=== PATIENT | female | born 2005 | race Caucasian/White ===

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

== ENCOUNTER → 2023-06-05 12:14 | Outpatient (BNVA) | payer OTHER, SELFPAY | PROVIDERS: PCP Family Medicine; Visit Provider Nurse Practitioner Women's Health | DX: N94.6 Dysmenorrhea, unspecified (principal) | CPT/HCPCS: 76830 ==

== ENCOUNTER → 2023-08-26 15:00 | Outpatient (BNVA) | payer OTHER, SELFPAY | PROVIDERS: PCP Family Medicine; Visit Provider Obstetrics & Gynecology | DX: Z34.90 Encounter for supervision of normal pregnancy, unspecified, unspecified trimester (principal); Z3A.00 Weeks of gestation of pregnancy not specified | CPT/HCPCS: 84702 ==

== ENCOUNTER → 2023-08-28 15:30 | Outpatient (BNVA) | payer OTHER, SELFPAY | PROVIDERS: PCP Family Medicine; Visit Provider Obstetrics & Gynecology | DX: Z34.90 Encounter for supervision of normal pregnancy, unspecified, unspecified trimester (principal); Z3A.00 Weeks of gestation of pregnancy not specified | CPT/HCPCS: 84702 ==

== ENCOUNTER → 2023-09-18 10:15 | Outpatient (BNVA) | payer MEDICAID, SELFPAY | PROVIDERS: PCP Family Medicine; Visit Provider Obstetrics & Gynecology | DX: Z34.91 Encounter for supervision of normal pregnancy, unspecified, first trimester (principal); Z3A.01 Less than 8 weeks gestation of pregnancy | CPT/HCPCS: 76817 ==

== ENCOUNTER → 2023-09-25 12:00 | Outpatient (BNVA) | payer OTHER, MEDICAID, SELFPAY | PROVIDERS: PCP Family Medicine; Visit Provider Obstetrics & Gynecology | DX: Z34.90 Encounter for supervision of normal pregnancy, unspecified, unspecified trimester (principal); Z3A.00 Weeks of gestation of pregnancy not specified | CPT/HCPCS: 84439; 84443; 84481; 85025; 86592; 86762; 86803; 86850; 86900; 87340; 87806 ==

== ENCOUNTER → 2023-12-17 14:17 | Outpatient (BNVA) | payer OTHER, BC, MEDICAID, SELFPAY | PROVIDERS: PCP Family Medicine; Visit Provider Obstetrics & Gynecology | DX: Z34.92 Encounter for supervision of normal pregnancy, unspecified, second trimester (principal) | CPT/HCPCS: 76805 ==

== ENCOUNTER → 2024-01-14 07:45 | Outpatient (BNVA) | payer OTHER, BC, MEDICAID, SELFPAY | PROVIDERS: PCP Family Medicine; Visit Provider Obstetrics & Gynecology | DX: Z34.80 Encounter for supervision of other normal pregnancy, unspecified trimester (principal) | CPT/HCPCS: 76816 ==

== ENCOUNTER → 2024-02-10 07:35 | Outpatient (BNVA) | payer OTHER, BC, MEDICAID, SELFPAY | PROVIDERS: PCP Family Medicine; Visit Provider Obstetrics & Gynecology | DX: Z34.01 Encounter for supervision of normal first pregnancy, first trimester (principal) | CPT/HCPCS: 82950; 84315 ==

== ENCOUNTER → 2024-02-21 08:10 | Outpatient (BNVA) | payer OTHER, BC, MEDICAID, SELFPAY | PROVIDERS: PCP Family Medicine; Visit Provider Obstetrics & Gynecology | DX: Z34.00 Encounter for supervision of normal first pregnancy, unspecified trimester (principal) | CPT/HCPCS: 82951; 82952 ==

== ENCOUNTER → 2024-03-24 07:49 | Outpatient (BNVA) | payer OTHER, BC, MEDICAID, SELFPAY | PROVIDERS: PCP Family Medicine; Visit Provider Nurse Practitioner Women's Health | DX: Z34.01 Encounter for supervision of normal first pregnancy, first trimester (principal) | CPT/HCPCS: 84315; 86850 ==

== ENCOUNTER 2024-03-25 15:30 | Outpatient (CLI) | payer OTHER, BC, MEDICAID, SELFPAY ==
[2024-03-25 15:48] VITALS: BP 137/79; PULSE 94
[2024-03-25 16:03] VITALS: BMI 41.1
[2024-03-25 16:04] VITALS: BP 127/75; PULSE 95
[2024-03-25 16:19] VITALS: BP 129/70; PULSE 98
== END 2024-03-25 16:27 | disposition home or self-care (01) ==
LOC: OPOB 15:38 → OBGYN 15:38
PROVIDERS: PCP Family Medicine; Visit Provider Obstetrics & Gynecology
DX: O26.899 Other specified pregnancy related conditions, unspecified trimester (principal); Z3A.00 Weeks of gestation of pregnancy not specified; R10.9 Unspecified abdominal pain
CPT/HCPCS: 59025; 99211

== ENCOUNTER → 2024-04-06 07:51 | Outpatient (BNVA) | payer OTHER, BC, MEDICAID, SELFPAY | PROVIDERS: PCP Family Medicine; Visit Provider Nurse Practitioner Women's Health | DX: Z34.01 Encounter for supervision of normal first pregnancy, first trimester (principal) | CPT/HCPCS: 84315; 87081 ==

== ENCOUNTER → 2024-04-08 08:59 | Outpatient (BNVA) | payer OTHER, BC, MEDICAID, SELFPAY | PROVIDERS: PCP Family Medicine; Visit Provider Nurse Practitioner Women's Health | DX: Z34.93 Encounter for supervision of normal pregnancy, unspecified, third trimester (principal) | CPT/HCPCS: 76816 ==

== ENCOUNTER 2024-04-28 09:50 | Outpatient (CLI) | payer OTHER, BC, MEDICAID, SELFPAY ==
[2024-04-28 10:02] VITALS: BP 122/83; PULSE 83
[2024-04-28 10:23] VITALS: BP 119/94; PULSE 98
[2024-04-28 10:42] VITALS: BP 131/84; PULSE 86
== END 2024-04-28 11:20 | disposition home or self-care (01) ==
LOC: OPOB 09:54 → OBGYN 11:13
PROVIDERS: PCP Family Medicine; Visit Provider Obstetrics & Gynecology
DX: O26.899 Other specified pregnancy related conditions, unspecified trimester (principal); Z3A.00 Weeks of gestation of pregnancy not specified; R10.9 Unspecified abdominal pain
CPT/HCPCS: 59025; 99211

== ENCOUNTER 2024-04-29 18:20 | Inpatient (IN) | payer OTHER, BC, MEDICAID, SELFPAY ==
[2024-04-29] VITALS (18 sets, daily range): BP systolic 114–143; BP diastolic 69–93; PULSE 112–130; TEMP 36.8; BMI 40.9
[2024-04-29] MEDS: dextrose 5%-lactated ringers 1,000 ML 125 ML IV (18:08)
[2024-04-29 18:12] LABS: Basophils % 0.2 %; Hematocrit 33.1 % (36-47); Lymphocytes # 0.7 10^3/uL (0.8-4.8); Lymphocytes % 5.9 %; Mean Corpuscular HGB Conc 33.2 g/dL (30-55); Mean Corpuscular Hemoglobin 25.4 pg (27-33); Mean Corpuscular Volume 76.4 fl (85-98); Mean Platelet Volume 12.6 fL (7.4-10.4); Monocytes # 0.5 10^3/uL (0.2-0.9); Neutrophils # 10.11 10^3/uL (1.8-7.7); Neutrophils % 89.6 %; Nucleated Red Blood Cells % 0 %; Platelet Count 175 10^3/cmm (157-399); Red Blood Count 4.33 10^6/uL (3.85-5.65); Red Cell Distribution Width 14.1 % (12.1-15.1); White Blood Count 11.27 10^3/uL (3.29-11.43)
--- NOTE | 2024-04-29 18:35 | PM.OBGYHP ---
Providers/Chief Complaint Admitting Physician: Leo Gibbs MD Primary DRYWALL FINISHING FOREMAN: Leo Gibbs MD Primary Care Provider: Cherrie Lambert MD Chief Complaint: IOL HPI DRYWALL FINISHING FOREMAN History of Present Illness Carmen Banks is a 19 year old female G1 EDC April 29, 2024 At 40 w 0 d No complications Admitted for elective induction of labor No c/o + active movements Present Details : 1 Para: 0 Labs Rubella: Immune RPR: Negative GBS: Negative Medications/Allergies Home Medications Medication Instructions Recorded Confirmed Last Taken Type docosahexaenoic acid 200 mg mg PO 09/12/23 04/27/24 Unknown History capsule ( DHA) Allergies Allergy/AdvReac Type Severity Reaction Status Date / Time cephalexin [From Keflex] Allergy Mild rash Verified 04/27/24 07:46 PFSH DRYWALL FINISHING FOREMAN PFSH: Medical History Anxiety Surgical History Hx of tonsillectomy Family History Father Diabetes Family/Other Diabetes Paternal uncles Stroke Paternal uncle Mother Thyroid disease Denies family history of Colon cancer Ovarian cancer Heart disease Hypercholesteremia Breast cancer Hypertension Uterine cancer Social History Smoking and tobacco/nicotine status: never used tobacco/nicotine Personal Safety: Do you feel safe at home: Yes History History History 1 Term 0 Miscarriages/Ectopic Living Children Care MEAGAN Calculator Estimated Delivery Date Method Current WG Current Estimate 04/29/24 LMP (Certain) 40w 2d Specific Issues/Plans SUPERVISION OF FIRST NORMAL NAUSEA AND VOMITING DURING -resolved RH NEGATIVE STATUS DURING - rhogam received on 03/24/24 EPISTAXIS, RECURRENT ANXIETY DIZZINESS Vitals/I&O/Wt Last Vital Signs Temp 96.1 F L 05/01/24 02:27 Pulse 78 05/01/24 04:44 Resp 15 04/30/24 16:00 BP 119/68 05/01/24 04:44 Pulse Ox 98 04/30/24 01:39 O2 Del Method Room Air 04/29/24 16:36 04/30/24 05/01/24 05/01/24 22:59 06:59 14:59 Intake Total 1371.6 / 2512.95 Output Total 1650 / 1650 Balance -278.4 / 862.95 Weight last 48 hrs Weight 246 lb Physical Exam Narrative: Weight 246 lbs; 5?5? VS normal General comfortable, awake, alert Lungs: clear Cor: RRR FH 38 cm, cephalic Cervix: 2 / 50% / -3 / posterior Ext: normal External monitor: heart tracing good variability, + accelerations Urinary Catheter Management: Wolfe: Cath Placed During This Visit: yes, but has since been removed by the nurse Reason for Continuing Indwelling Catheter: Not indwelling catheter Urinary Catheter Date of Insertion: 04/30/24 Urinary Catheter Time of Insertion: 02:30 Date Urinary Catheter Removed: 04/30/24 Time Urinary Catheter Discontinued: 13:25 Data 05/01/24 05:25 Results Labs OB ([facility]): Obstetrics US 04/08/24 Blood Type O Negative 04/29/24 Antibody Screen Positive 04/29/24 Hct 26.6 % (36-47) L 05/01/24 Hgb 8.60 g/dL (11.27-16.99) L 05/01/24 Rho(D) Type Rh negative 04/29/24 Plt Count 148 10^3/cmm (157-399) L 05/01/24 Hep Bs Antigen Non-reactive (Nonreactive) 09/25/23 Hepatitis C Antibody Non-reactive (Nonreactive) 09/25/23 Rubella IgG Antibody 76.0 IU/mL (0.0-10.0) H 09/25/23 RPR Nonreactive (Nonreactive) 09/25/23 HIV 1&2 Ab & HIV 1 Ag Non-reactive (Non-Reactiv) 09/25/23 TSH 1.29 uIU/mL (0.27-4.20) 09/25/23 Free T4 1.20 ng/dL (0.82-1.77) 09/25/23 C.trachomatis RNA (TMA) Pending 04/30/24 N.gonorrhoeae RNA (TMA) Pending 04/30/24 Chlamydia/GC Comment Pending 04/30/24 Glucose 1 Hr 50 gm 149 mg/dL (85-140) H 02/10/24 Gest Glucose Tolerance mg/dL 02/21/24 Ser , Semi-Qnt 1300.00 mIU/mL 08/28/23 HCG, Qual Positive (Negative) H 09/12/23 A&P Assessment and plan (1) Supervision of normal first : 40 w 0 d Admit for induction of labor GBS negative Plan start Pitocin per protocol Qualifiers: Trimester: first trimester Qualified Code(s): Z34.01 - Encounter for supervision of normal first , first trimester (2) Rh negative status during : Qualifiers: Trimester: second trimester Qualified Code(s): O26.892 - Other specified related conditions, second trimester; Z67.91 - Unspecified blood type, Rh negative Attestations Medical Necessity Statement*: patient at 40 w 0 d, admitted for induction of labor Coding Level of Care Code Acute Code for Chg Fwd Diagnoses Encounter for supervision of normal first in first trimester Z34.01 Trimester: first trimester Rh negative status during in second trimester O26.892; Z67.91 Trimester: second trimester Time Spent (min) 60
[2024-04-29] MEDS: ondansetron 2 mg/ML SDV 2 mL 4 MG IVP (19:08)
--- NOTE | 2024-04-29 21:20 | PM.OBGYPN ---
SENIOR RESEARCH ANALYST Subjective Subjective: Interval history: Fetus reassuring Cervix: 3 cm / 75% / -3 Labor: Station: +1 Amniotic Membrane Status: Ruptured Monitor Mode: Internal (IUPC) Contraction Pattern: Regular Vitals/I&O/Wt Last Vital Signs Temp 96.1 F L 05/01/24 02:27 Pulse 78 05/01/24 04:44 Resp 15 04/30/24 16:00 BP 119/68 05/01/24 04:44 Pulse Ox 98 04/30/24 01:39 O2 Del Method Room Air 04/29/24 16:36 04/30/24 05/01/24 05/01/24 22:59 06:59 14:59 Intake Total 1371.6 / 2512.95 Output Total 1650 / 1650 Balance -278.4 / 862.95 Weight last 48 hrs Weight 246 lb Physical Exam Urinary Catheter Management: Wolfe: Cath Placed During This Visit: yes, but has since been removed by the nurse Reason for Continuing Indwelling Catheter: Not indwelling catheter Urinary Catheter Date of Insertion: 04/30/24 Urinary Catheter Time of Insertion: 02:30 Date Urinary Catheter Removed: 04/30/24 Time Urinary Catheter Discontinued: 13:25 Data 05/01/24 05:25 A&P Assessment and plan (1) Encounter for induction of labor: Attestations Medical Necessity Statement*: patient at 40 w 0 d, admitted for induction of labor Coding Level of Care Code Acute Code for Chg Fwd Diagnoses Encounter for induction of labor Z34.90 Time Spent (min) 20
[2024-04-29] MEDS: oxytocin 30 UNIT/500 ML BAG IV (22:42)
[2024-04-30] VITALS (119 sets, daily range): BP systolic 91–173; BP diastolic 52–88; PULSE 72–146; RESP 15–16; TEMP 35.4–36.7; O2SAT 98–100
[2024-04-30] MEDS: lactated ringers 1,000 ML 999 ML IV ×2 (00:14→01:16)
--- NOTE | 2024-04-30 01:39 | P.ANESUD_ITS ---
Pre-Anesthetic Update Pre-Anesthetic Assessment: Date of Surgery/Procedure: 04/30/24 Preop Mayi gnosis: Labor pain Proposed Procedure: DENIA Any changes to Pre-Anesthetic Assessment?: No Labs Last 48hrs: Short CBC 04/29/24 Range/Units 17:15 WBC 11.27 (3.29-11.43) 10^ 3/uL Hgb 11.00 L (11.27-16.99) g/ dL Hct 33.1 L (36-47) % MCV 76.4 L (85-98) fl Plt Count 175 (157-399) 10^3/c mm Neut % (Auto) 89.6 % Neut # (Auto) 10.11 H (1.8-7.7) 10^3/u L Blood Bank 04/29/24 17:15 Blood Type O Negative Rho(D) Type Rh negative Antibody Screen Positive Vitals: Temperature 98.3 F 04/29/24 17:58 Temperature Source Axillary 04/29/24 17:58 Pulse Rate 109 H 04/30/24 01:36 Pulse Rhythm Regular 04/29/24 16:36 Pulse Strength 3+ Normal 04/29/24 16:36 Respiratory Effort Spontaneous, Non- Labored 04/29/24 16:36 Respiratory Depth Normal 04/29/24 16:36 Respiratory Patter n Normal 04/29/24 16:36 Blood Pressure 115/69 04/30/24 01:36 Pulse Oximetry 98 04/30/24 01:31 Oxygen Delivery Me thod Room Air 04/29/24 16:36 Exam: Pre-Anes Outpt Exam: alert, oriented x 3, clear to auscultation bilaterally and regular rate & rhythm Cardiac Studies: No Data to Display
--- NOTE | 2024-04-30 01:40 | ANES.PROC ---
Anesthesia Procedures Procedure/Date: 04/30/24 Epidural: Time Out Performed: Yes Consents Signed: Procedure Consent, NPO Consent and No Consent Needed Consent: requested by attending/covering physician, from patient, risks and benefits reviewed and patient agrees to proceed Lumbar Level: L2-L3 Epidural position: sitting Epidural procedure: sterile prep of area, 1% lidocaine to numb the area, 18 g needle, negative for paresthesia passed, test dose given, 1.5% xylocaine 1:200k epi (5cc), 0.2% Ropivacaine bolus ml (5cc and Fentanyl 100mcg), placed PCEA, no systemic response, sterile dressing applied, L.U.D. no apparent complications and 0.2% Ropiavacaine @ mls/hr (13cc/hour.Pt tolerated well)
[2024-04-30] MEDS: ROPivacaine syringe 100 MG/50 ML SYRINGE 13 MG EPIDURAL ×4 (01:45→14:07)
[2024-04-30] MEDS: dextrose 5%-lactated ringers 1,000 ML 125 ML IV ×2 (02:22→10:49)
--- NOTE | 2024-04-30 06:40 | P.PN_ITS ---
HR SHARED SERVICES CONSULTANT Subjective 2 Subjective: Interval history: Fetus reassuring Cervix: 4 cm / -2 AROM, clear fluid IUPC placed Labor: Station: +1 Amniotic Membrane Status: Ruptured Monitor Mode: Internal (IUPC) Contraction Pattern: Regular Vitals/I&O/Wt Last Vital Signs Temp 96.1 F L 05/01/24 02:27 Pulse 78 05/01/24 04:44 Resp 15 04/30/24 16:00 BP 119/68 05/01/24 04:44 Pulse Ox 98 04/30/24 01:39 O2 Del Method Room Air 04/29/24 16:36 04/30/24 05/01/24 05/01/24 22:59 06:59 14:59 Intake Total 1371.6 / 2512.95 Output Total 1650 / 1650 Balance -278.4 / 862.95 Weight last 48 hrs Weight 246 lb Physical Exam 2 Urinary Catheter Management: Wolfe: Cath Placed During This Visit: yes, but has since been removed by the nurse Reason for Continuing Indwelling Catheter: Not indwelling catheter Urinary Catheter Date of Insertion: 04/30/24 Urinary Catheter Time of Insertion: 02:30 Date Urinary Catheter Removed: 04/30/24 Time Urinary Catheter Discontinued: 13:25 Data 05/01/24 05:25 A&P Assessment and plan (1) Encounter for induction of labor: Attestations 2 Medical Necessity Statement*: patient at 40 w 1 d, admitted for induction of labor Coding Level of Care Code Acute Code for Chg Fwd Diagnoses Encounter for induction of labor Z34.90 Time Spent (min) 20
[2024-04-30] MEDS: calcium carbonate 500 mg Chew Tablet 1000 MG PO (07:41)
--- NOTE | 2024-04-30 16:50 | PM.OBGYPN ---
HAMMER OPERATOR Subjective Subjective: Interval history: , vigorous infant Cord gases and blood obtained Normal placenta and cord Second-degree perineal laceration repaired EBL: 300 cc No complications Labor: Station: +1 Amniotic Membrane Status: Ruptured Monitor Mode: Internal (IUPC) Contraction Pattern: Regular Vitals/I&O/Wt Last Vital Signs Temp 96.1 F L 05/01/24 02:27 Pulse 78 05/01/24 04:44 Resp 15 04/30/24 16:00 BP 119/68 05/01/24 04:44 Pulse Ox 98 04/30/24 01:39 O2 Del Method Room Air 04/29/24 16:36 04/30/24 05/01/24 05/01/24 22:59 06:59 14:59 Intake Total 1371.6 / 2512.95 Output Total 1650 / 1650 Balance -278.4 / 862.95 Weight last 48 hrs Weight 246 lb Physical Exam Urinary Catheter Management: Wolfe: Cath Placed During This Visit: yes, but has since been removed by the nurse Reason for Continuing Indwelling Catheter: Not indwelling catheter Urinary Catheter Date of Insertion: 04/30/24 Urinary Catheter Time of Insertion: 02:30 Date Urinary Catheter Removed: 04/30/24 Time Urinary Catheter Discontinued: 13:25 Data 05/01/24 05:25 A&P Assessment and plan (1) Vaginal delivery: Attestations Medical Necessity Statement*: patient at 40 w 1 d, admitted for induction of labor. s/p vaginal delivery Coding Level of Care Code Acute Code for Chg Fwd Diagnoses Vaginal delivery O80 Time Spent (min) 60
--- NOTE | 2024-04-30 16:55 | PM.DELIVERY ---
Delivery Note: Date of delivery: May 01, 2024 Pre-delivery diagnoses: 39 w 4 d elective induction of labor Post-delivery diagnoses: 39 w 4 d elective induction of labor vaginal delivery Procedure: induction of labor vaginal delivery Op report anesthesia: None Delivering Physician: Leo Gibbs MD Estimated blood loss (mL): 300 Findings: , vigorous infant Cord gases and blood obtained Normal placenta and cord Second-degree perineal laceration repaired EBL: 300 cc No complications Pre-Delivery Course: normal labor course Delivery: vaginal Post-Delivery Status: good History History History 1 Term 0 Miscarriages/Ectopic Living Children A&P Assessment and plan (1) Vaginal delivery: Coding Level of Care Code Acute Code for Chg Fwd Diagnoses Vaginal delivery O80 Time Spent (min) 60
[2024-04-30] MEDS: lidocaine 2% INJ 20 mL INJECTION (17:11)
[2024-04-30] MEDS: ibuprofen 800 mg tablet PO (18:50)
[2024-05-01] VITALS (7 sets, daily range): BP systolic 110–119; BP diastolic 68–77; PULSE 78–88; RESP 16; TEMP 35.6–36.6
[2024-05-01 05:33] LABS: Hematocrit 26.6 % (36-47); Mean Corpuscular HGB Conc 32.3 g/dL (30-55); Mean Corpuscular Hemoglobin 25.4 pg (27-33); Mean Corpuscular Volume 78.7 fl (85-98); Mean Platelet Volume 11.8 fL (7.4-10.4); Platelet Count 148 10^3/cmm (157-399); Red Blood Count 3.38 10^6/uL (3.85-5.65); Red Cell Distribution Width 14.3 % (12.1-15.1); White Blood Count 14.36 10^3/uL (3.29-11.43)
--- NOTE | 2024-05-01 08:00 | ANE.PACU2 ---
Inpatient post-anesthesia follow up: Airway intact: Yes Vital signs: Temperature 97.8 F Pulse Rate 85 Respiratory Rate 16 Blood Pressure 114/77 Pulse Oximetry 98 Oxygen Delivery Me thod Room Air Oxygen Flow Rate Fraction of Inspir ed Oxygen Hydration adequate: Yes Nausea and vomiting: No Pain level: 1 Mental status: Baseline Epidural Start/End: Epidural Start Date: 04/30/24 Epidural Start Time: 01:12 Epidural End Date: 04/30/24 Epidural End Time: 19:02
[2024-05-01] MEDS: ibuprofen 800 mg tablet PO (08:44)
[2024-05-01] MEDS: PRENATAL VIT NO.130/IRON/FOLIC 1 EACH TABLET PO (08:44)
[2024-05-01] MEDS: docusate sodium 100 mg Capsule PO (08:44)
--- NOTE | 2024-05-01 14:05 | P.PN_ITS ---
ELECTRICAL SYSTEMS ENGINEER Subjective 2 Subjective: Interval history: no c/o no bleeding, pain eating, voiding, ambulating well caring for without any problems Labor: Station: +1 Amniotic Membrane Status: Ruptured Monitor Mode: Internal (IUPC) Contraction Pattern: Regular Vitals/I&O/Wt Last Vital Signs Temp 97.8 F 05/01/24 18:30 Pulse 85 05/01/24 18:30 Resp 16 05/01/24 18:30 BP 114/77 05/01/24 18:30 Pulse Ox 98 04/30/24 01:39 O2 Del Method Room Air 05/01/24 18:30 05/01/24 05/01/24 05/02/24 14:59 22:59 06:59 Intake Total 0 / 0 Balance 0 / 0 Physical Exam 2 Narrative: afebrile, VS normal comfortable, awake, alert Abd: soft, nontender. fundus firm Ext: no edema; nontender Urinary Catheter Management: Wolfe: Cath Placed During This Visit: yes, but has since been removed by the nurse Reason for Continuing Indwelling Catheter: Not indwelling catheter Urinary Catheter Date of Insertion: 04/30/24 Urinary Catheter Time of Insertion: 02:30 Date Urinary Catheter Removed: 04/30/24 Time Urinary Catheter Discontinued: 13:25 Data 05/01/24 05:25 A&P Assessment and plan (1) Vaginal delivery: PPD #1 doing well discharge to home today instructions and precautions given call/return if fever, chills, headache, blurry vision, nausea, vomiting, abdominal pain; vaginal bleeding or discharge; shortness of breath, chest pain, leg pains or swelling; inability to void, perineal pain or swelling; feelings of depression or mood changes; thoughts of suicide or harming others; inability to care for baby. f/u in 6 weeks or PRN Attestations 2 Medical Necessity Statement*: patient s/p vaginal delivery, plan to discharge to home today Coding Level of Care Code Acute Code for Chg Fwd Diagnoses Vaginal delivery O80 Time Spent (min) 20
--- NOTE | 2024-05-01 14:10 | PM.OBGYDC ---
Discharge Providers CRAFT WORKER Date of Admission: 04/29/24 18:20 Date of Discharge: 05/01/24 Attending Provider at Admission: Leo Gibbs MD Attending Provider at Discharge: Leo Gibbs MD Consults: none Primary CRAFT WORKER: Leo Gibbs MD Primary Care Provider: Cherrie Lambert MD Diagnoses at Discharge Discharge Diagnosis (1) Vaginal delivery: Details from hospital stay: 19 y.o. G1 at 40 w 0 d admitted for induction of labor patient progressed with normal labor course fetus was reassuring throughout had vaginal delivery with repair of second-degree perineal laceration without any complications patient did well and was discharged to home on the first day Status: Acute Reason for Visit Reason for Visit: IOL Brief History: 19 y.o. G1 at 40 w 0 d admitted for induction of labor Hospital Course Hospital Course 19 y.o. G1 at 40 w 0 d admitted for induction of labor patient progressed with normal labor course fetus was reassuring throughout had vaginal delivery with repair of second-degree perineal laceration without any complications patient did well and was discharged to home on the first day Information Peripartum Data: Delivery Method: Vaginal Laceration description: Perineal - 2nd Degree Episiotomy description: None complications: none Physical Exam Narrative: afebrile, VS normal comfortable, awake, alert Abd: soft, nontender. fundus firm Ext: no edema; nontender Urinary Catheter Management: Wolfe: Cath Placed During This Visit: yes, but has since been removed by the nurse Reason for Continuing Indwelling Catheter: Not indwelling catheter Urinary Catheter Date of Insertion: 04/30/24 Urinary Catheter Time of Insertion: 02:30 Date Urinary Catheter Removed: 04/30/24 Time Urinary Catheter Discontinued: 13:25 History History History 1 Term 0 Miscarriages/Ectopic Living Children Discharge Data Studies Completed and Pending Laboratory Results WBC 14.36 10^3/uL (3.29-11.43) H 05/01/24 05:25 RBC 3.38 10^6/uL (3.85-5.65) L 05/01/24 05:25 Hgb 8.60 g/dL (11.27-16.99) L 05/01/24 05:25 Hct 26.6 % (36-47) L 05/01/24 05:25 MCV 78.7 fl (85-98) L 05/01/24 05:25 MCH 25.4 pg (27-33) L 05/01/24 05:25 MCHC 32.3 g/dL (30-55) 05/01/24 05:25 RDW 14.3 % (12.1-15.1) 05/01/24 05:25 Plt Count 148 10^3/cmm (157-399) L 05/01/24 05:25 MPV 11.8 fL (7.4-10.4) H 05/01/24 05:25 Neut % (Auto) 89.6 % 04/29/24 17:15 Lymph % (Auto) 5.9 % 04/29/24 17:15 [place] % (Auto) 4.0 % 04/29/24 17:15 Eos % (Auto) 0.0 % 04/29/24 17:15 Baso % (Auto) 0.2 % 04/29/24 17:15 Neut # (Auto) 10.11 10^3/uL (1.8-7.7) H 04/29/24 17:15 Lymph # (Auto) 0.7 10^3/uL (0.8-4.8) L 04/29/24 17:15 [place] # (Auto) 0.5 10^3/uL (0.2-0.9) 04/29/24 17:15 Eos # (Auto) 0.0 10^3/uL (0.0-0.8) 04/29/24 17:15 Baso # (Auto) 0.0 10^3/uL (0.0-0.1) 04/29/24 17:15 Nucleated RBC % (auto) 0 % 04/29/24 17:15 Nucleated RBCs # 0.0 /100WBC 04/29/24 17:15 C.trachomatis RNA (TMA) Not detected (NOT DETECTED) 04/30/24 10:15 Chlamydia/GC Comment See note 04/30/24 10:15 N.gonorrhoeae RNA (TMA) Not detected (NOT DETECTED) 04/30/24 10:15 Blood Type O Negative 04/29/24 17:15 Rho(D) Type Rh negative 04/29/24 17:15 Antibody Screen Positive 04/29/24 17:15 Antibody Identification Anti-D 04/29/24 17:15 Screen Negative (Negative) 05/01/24 05:25 Procedures Performed induction of labor vaginal delivery repair of second-degree perineal laceration Vitals Last Vital Signs Temp 97.8 F 05/01/24 18:30 Pulse 85 05/01/24 18:30 Resp 16 05/01/24 18:30 BP 114/77 05/01/24 18:30 Pulse Ox 98 04/30/24 01:39 O2 Del Method Room Air 05/01/24 18:30 Results Labs OB ([facility]): Obstetrics US 04/08/24 Blood Type O Negative 04/29/24 Antibody Screen Positive 04/29/24 Hct 26.6 % (36-47) L 05/01/24 Hgb 8.60 g/dL (11.27-16.99) L 05/01/24 Rho(D) Type Rh negative 04/29/24 Plt Count 148 10^3/cmm (157-399) L 05/01/24 Hep Bs Antigen Non-reactive (Nonreactive) 09/25/23 Hepatitis C Antibody Non-reactive (Nonreactive) 09/25/23 Rubella IgG Antibody 76.0 IU/mL (0.0-10.0) H 09/25/23 RPR Nonreactive (Nonreactive) 09/25/23 HIV 1&2 Ab & HIV 1 Ag Non-reactive (Non-Reactiv) 09/25/23 TSH 1.29 uIU/mL (0.27-4.20) 09/25/23 Free T4 1.20 ng/dL (0.82-1.77) 09/25/23 C.trachomatis RNA (TMA) Not detected (NOT DETECTED) 04/30/24 N.gonorrhoeae RNA (TMA) Not detected (NOT DETECTED) 04/30/24 Chlamydia/GC Comment See note 04/30/24 Glucose 1 Hr 50 gm 149 mg/dL (85-140) H 02/10/24 Gest Glucose Tolerance mg/dL 02/21/24 Ser , Semi-Qnt 1300.00 mIU/mL 08/28/23 HCG, Qual Positive (Negative) H 09/12/23 Discharge Plan Discharge Patient Disposition: Home Condition: Stable Prescriptions: Continued DHA 200 mg capsule PO Discharge Orders: Discharge Order (Routine); Ordered 05/01/24 Ordered By: Leo Gibbs Referrals: Leo Gibbs MD [Physician] - 6 Weeks (* Please call first thing Saturday morning to make your 6 week appointment) Discharge Diet: Usual diet Discharge Activity: Increase activity as tolerated Patient Instructions: Depression (DC), Bleeding (DC), Preeclampsia and Eclampsia After Delivery (GEN), Hemorrhage (DC), OB Discharge Report, OB Food/Drug Interaction Guide, Opioid Safety, OB Home Care, OB Proud Parent Packet, OB Vaginal Deliveries - [facility] Discharge Attestations CRAFT WORKER Time Spent in Discharge Care*: less than 30 min Coding Level of Care Code Acute Code for Chg Fwd Diagnoses Vaginal delivery O80 Time Spent (min) 20
[2024-05-01 16:00] LABS: Chlamydia Trachomatis RNA TMA NOT DETECTED (NOT DETECTED); Neisseria Gonorrhoeae RNA, TMA NOT DETECTED (NOT DETECTED)
== END 2024-05-01 18:55 | disposition home or self-care (01) | DRG 806 ==
LOC: OPOB 18:20 → OBGYN 18:20
PROVIDERS: Admitting Provider Obstetrics & Gynecology; PCP Family Medicine; Visit Provider Obstetrics & Gynecology
DX: O70.1 Second degree perineal laceration during delivery (principal); O36.0930 Maternal care for other rhesus isoimmunization, third trimester, not applicable or unspecified; Z37.0 Single live birth; O99.344 Other mental disorders complicating childbirth; Z3A.39 39 weeks gestation of pregnancy
CPT/HCPCS: 36415; 36430; 51702; 59025; 59409; 80048; 80503; 85025; 85027; 85460; 86850; 86870; 86900; 87491; 87591; 90384; 90471; 96374; 98960; J2405; J2590; J2795; J3010; J7120; J7121

== ENCOUNTER → 2024-05-15 11:35 | Outpatient (BNVA) | payer BC, MEDICAID, SELFPAY | PROVIDERS: PCP Family Medicine; Visit Provider Registered Nurse | DX: E61.1 Iron deficiency (principal) | CPT/HCPCS: 82728; 83550; 84443; 85025 ==

== ENCOUNTER → 2024-06-24 09:08 | Outpatient (BNVA) | payer OTHER, BC, MEDICAID, SELFPAY | PROVIDERS: PCP Registered Nurse; Visit Provider Registered Nurse | DX: Z30.9 Encounter for contraceptive management, unspecified (principal); G43.909 Migraine, unspecified, not intractable, without status migrainosus; F41.9 Anxiety disorder, unspecified | CPT/HCPCS: 80053; 82728; 83550; 85025 ==

== ENCOUNTER → 2024-11-04 11:34 | Outpatient (BNVA) | payer BC, MEDICAID, OTHER, SELFPAY | PROVIDERS: PCP Registered Nurse; Visit Provider Nurse Practitioner Women's Health | DX: R23.4 Changes in skin texture (principal); N94.6 Dysmenorrhea, unspecified; N92.0 Excessive and frequent menstruation with regular cycle; Z30.41 Encounter for surveillance of contraceptive pills; D50.9 Iron deficiency anemia, unspecified | CPT/HCPCS: 82728; 83550; 84466; 85025 ==

== ENCOUNTER → 2024-11-09 13:12 | Outpatient (BNVA) | payer OTHER, BC, SELFPAY | PROVIDERS: PCP Registered Nurse; Visit Provider Registered Nurse | DX: J11.1 Influenza due to unidentified influenza virus with other respiratory manifestations (principal); J01.40 Acute pansinusitis, unspecified | CPT/HCPCS: 87400; 87880 ==

== ENCOUNTER 2024-11-19 13:28 | Outpatient (CLI) | payer OTHER, BC, MEDICAID, SELFPAY ==
--- NOTE | 2024-11-19 13:45 | US_ITS ---
WS: [id number] Left breast ultrasound, 11/19/2024 Clinical Data: R23.4 - Changes in skin texture Comparison: None. Findings: The left breast was imaged from 7-9 o'clock in the lower inner quadrant. Only normal breast tissue is seen. There is no mass or cyst. There is no fluid in the subcutaneous tissue. US/US breast LT limited* [id number] Impression: 1. Negative left breast ultrasound. 2. Left breast mammogram will be performed. BIRADS: 2 - Benign. FOLLOW UP: See Report
--- NOTE | 2024-11-19 14:30 | MM_ITS ---
WS: [id number] Left breast diagnostic 3D tomosynthesis digital mammogram, 11/19/2024 Clinical Data: N64.9 - Disorder of breast, unspecified Comparison: Left breast ultrasound, 11/19/2024 Findings: The breast parenchymal pattern shows fibroglandular tissue. No spiculated masses nor clustered calcifications are seen. There are no secondary signs of carcinoma. MM/MM diag LT tomosynthesis [id number] Impression: 1. Negative left breast mammogram. 2. Recommend return to clinical evaluation. DENSITY: There are scattered areas of fibroglandular density. BIRADS: 2 - Benign. FOLLOW UP: See Report The CAD field checker was used.
== END 2024-11-19 13:29 | disposition home or self-care (01) ==
PROVIDERS: PCP Registered Nurse; Visit Provider Nurse Practitioner Women's Health
DX: N64.9 Disorder of breast, unspecified (principal); R23.4 Changes in skin texture; R92.322 Mammographic fibroglandular density, left breast
CPT/HCPCS: 76642; 77061; G0279

== ENCOUNTER 2025-03-08 08:09 | Outpatient (CLI) | payer OTHER, BC, MEDICAID, SELFPAY ==
--- NOTE | 2025-03-08 08:00 | US_ITS ---
WS: [id number] ABDOMINAL ULTRASOUND LIMITED REASON FOR VISIT: K81.9 - Cholecystitis, unspecified TECHNIQUE: Grayscale and Doppler ultrasound examination of the abdomen. FINDINGS: Pancreas: No mass, ductal dilatation or calcification is identified within the visualized pancreas. Abdominal aorta and IVC: Normal Liver: Liver measures 17.3 cm in length. Homogeneous and abnormal echogenicity with no focal lesion. Normal portal venous flow. Gallbladder: Gallbladder wall thickness measures 0.2 mm. No calculi identified. No bile duct dilatation. Right kidney: Right kidney measures 11.0 cm x 4.7 cm x 4.0 cm. Right kidney cortex measures 1.0 cm. No mass, calculus, or hydronephrosis. No ascites. US/US gall bladder [id number] IMPRESSION: The liver is mildly enlarged with no other finding as above. The gallbladder is unremarkable.
== END 2025-03-08 08:10 | disposition home or self-care (01) ==
PROVIDERS: PCP Registered Nurse; Visit Provider Registered Nurse
DX: K81.9 Cholecystitis, unspecified (principal); R16.0 Hepatomegaly, not elsewhere classified
CPT/HCPCS: 76705